=== PATIENT | male | born 1980 | race American Indian/Alaskan Native ===

== ENCOUNTER 2017-07-15 22:44 | Emergency (ER) | payer SELFPAY ==
[2017-07-15 23:41] VITALS: BP 108/65
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
== END 2017-07-16 06:27 | disposition home or self-care (01) ==
LOC: ED 22:44
DX: M54.5 Low back pain (principal); M54.2 Cervicalgia; V89.2XXA Person injured in unspecified motor-vehicle accident, traffic, initial encounter; Y93.89 Activity, other specified; Y99.8 Other external cause status; Y92.410 Unspecified street and highway as the place of occurrence of the external cause
CPT/HCPCS: 99282

== ENCOUNTER 2017-07-24 23:01 | Emergency (ER) | payer OTHER ==
[2017-07-24 23:16] VITALS: BP 117/58
--- NOTE | 2017-07-25 00:44 | XRay Report ---
FINAL REPORT EXAM: XR SHOULDER 2+V RT HISTORY: Right shoulder pain COMPARISON: None available. FINDINGS: Three views of the right shoulder obtained. Bony structures are intact. Joint spaces are preserved. No acute fracture dislocation. IMPRESSION: No acute bony abnormality.
--- NOTE | 2017-07-25 00:45 | XRay Report ---
FINAL REPORT EXAM: XR SPINE LUMBOSACRAL 2-3V HISTORY: lower back pain COMPARISON: None available. FINDINGS: Two views of the lumbar spine obtained. Lumbar vertebral body heights and disc heights are preserved. Mild dextroconvex curvature. Pedicles are intact. No spondylolisthesis. IMPRESSION: Lumbar vertebral body heights and disc heights are preserved. Mild dextroconvex curvature.
--- NOTE | 2017-07-25 00:46 | XRay Report ---
FINAL REPORT EXAM: XR SPINE CERVICAL 2-3V HISTORY: Neck pain COMPARISON: None available. FINDINGS: Three views of the cervical spine obtained. Cervical vertebral body heights and disc heights are preserved. Prevertebral soft tissues are within normal limits. Odontoid process is grossly intact. IMPRESSION: Normal height and alignment of the cervical spine.
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
[2017-07-25] MEDS ORDERED: MOTRIN PO ONE (05:52)
== END 2017-07-25 07:04 | disposition home or self-care (01) ==
LOC: ED 23:01
DX: S16.1XXA Strain of muscle, fascia and tendon at neck level, initial encounter (principal); M62.830 Muscle spasm of back; M54.5 Low back pain; S00.532A Contusion of oral cavity, initial encounter; V49.49XA Driver injured in collision with other motor vehicles in traffic accident, initial encounter; Y93.89 Activity, other specified; Y92.89 Other specified places as the place of occurrence of the external cause; Y99.8 Other external cause status
CPT/HCPCS: 72040; 72100